=== PATIENT | male | born 1970 | race Caucasian/White ===

== ENCOUNTER 2018-09-23 01:07 | Emergency (ER) | payer MEDICAID, OTHER ==
[~2018-09-23] VITALS: Wt 90.0 kg
[2018-09-23] MEDS ORDERED: SOD CHLORIDE 0.9% 1,000 ML IV STA (02:27)
[2018-09-23] MEDS ORDERED: morphine 4 MG/ML VIAL IV STA (02:27)
[2018-09-23] MEDS ORDERED: ONDANSETRON 4 MG INJ IV STA (02:27)
[2018-09-23] MEDS ORDERED: AMLO-147 PO (03:32)
[2018-09-23] MEDS ORDERED: HYDR25TA6 PO (03:32)
[2018-09-23] MEDS ORDERED: LISI40TA3 PO (03:32)
[2018-09-23] MEDS ORDERED: TRAM50TA2 PO (04:42)
[2018-09-23] MEDS ORDERED: ONDA4TAB14 PO (04:42)
[2018-09-23 04:55] VITALS: BP 150/98; PULSE 68; RESP 19
--- NOTE | 2018-09-23 05:05 | ERD ---
ER Documentation Chief Complaint Chief Complaint AP X'S 1 DAY HPI Is a 47-year-old male who comes over the suprapubic abdominal pain for the past day. Pain is mild to moderate intensity no exacerbating alleviating factors. Denies dysuria urgency or frequency. Denies any other current complaints ROS All systems reviewed and are negative except as per history of present illness. Medications Home Meds Active Scripts Ondansetron (Ondansetron Odt) 4 Mg Tab.rapdis, 4 MG PO Q6H PRN for NAUSEA AND/OR VOMITING, #10 TAB Prov:LIBANTODSHASHI Jakob 09/23/18 Tramadol HCl (Tramadol HCl) 50 Mg Tablet, 50 MG PO Q4 PRN for PAIN, #20 TAB Prov:SHASHI HERNANDEZ 09/23/18 Reported Medications Amlodipine Besylate* (Amlodipine Besylate*) 10 Mg Tablet, 10 MG PO QAM, #30 TAB 09/23/18 Hydrochlorothiazide* (Hydrochlorothiazide*) 25 Mg Tab, 25 MG PO QAM, #30 TAB 09/23/18 Lisinopril* (Lisinopril*) 40 Mg Tablet, 40 MG PO QAM, #30 TAB 09/23/18 Allergies Allergies: Coded Allergies: No Known Allergy (Unverified , 09/23/18) PMhx/Soc Hx Cardiac Disorders: Yes (htn) Hx Alcohol Use: Yes Hx Substance Use: No Hx Tobacco Use: No Smoking Status: Never smoker Physical Exam Vitals Vital Signs Date Temp Pulse Resp B/P (MAP) Pulse Ox O2 O2 Flow FiO2 Time Delivery Rate 09/23/18 68 19 150/98 99 Room Air 04:55 (115) 09/23/18 70 16 109/75 97 Room Air 03:14 (86) 09/23/18 98.2 84 18 158/65 99 01:12 (96) Physical Exam Const: No acute distress Head: Atraumatic Eyes: Normal Conjunctiva ENT: Normal External Ears, Nose and Mouth. Neck: Full range of motion. No meningismus. Resp: Clear to auscultation bilaterally Cardio: Regular rate and rhythm, no murmurs Abd: Soft, non tender, non distended. Normal bowel sounds Skin: No petechiae or rashes Back: No midline or flank tenderness Ext: No cyanosis, or edema Neur: Awake and alert Psych: Normal Mood and Affect Result Diagram: 09/23/18 0346 09/23/18 0346 Results 24 hrs Laboratory Tests Test 09/23/18 02:28 09/23/18 03:46 Urine Color YELLOW Urine Clarity CLEAR Urine pH 6.0 Urine Specific [place] 1.019 Urine Ketones NEGATIVE mg/dL Urine Nitrite NEGATIVE mg/dL Urine Bilirubin NEGATIVE mg/dL Urine Urobilinogen 2+ mg/dL Urine Leukocyte Esterase NEGATIVE Howard/ul Urine Hemoglobin NEGATIVE mg/dL Urine Glucose NEGATIVE mg/dL Urine Total Protein NEGATIVE mg/dl White Blood Count 5.0 10^3/ul Red Blood Count 3.66 10^6/ul Hemoglobin 10.7 g/dl Hematocrit 31.4 % Mean Corpuscular Volume 85.8 fl Mean Corpuscular Hemoglobin 29.2 pg Mean Corpuscular Hemoglobin Concent 34.1 g/dl Red Cell Distribution Width 12.2 % Platelet Count 101 10^3/UL Mean Platelet Volume 12.2 fl Immature Granulocytes % 0.200 % Neutrophils % 50.7 % Lymphocytes % 35.0 % Monocytes % 10.3 % Eosinophils % 3.2 % Basophils % 0.6 % Nucleated Red Blood Cells % 0.0 /100WBC Immature Granulocytes # 0.010 10^3/ul Neutrophils # 2.6 10^3/ul Lymphocytes # 1.8 10^3/ul Monocytes # 0.5 10^3/ul Eosinophils # 0.2 10^3/ul Basophils # 0.0 10^3/ul Nucleated Red Blood Cells # 0.0 10^3/ul Sodium Level 141 mmol/L Potassium Level 3.5 mmol/L Chloride Level 106 mmol/L Carbon Dioxide Level 28 mmol/L Anion Gap 7 Blood Urea Nitrogen 10 mg/dl Creatinine 0.57 mg/dl Est Glomerular Filtrat Rate mL/min > 60 mL/min Glucose Level 126 mg/dl Calcium Level 8.2 mg/dl Total Bilirubin 0.5 mg/dl Direct Bilirubin 0.00 mg/dl Indirect Bilirubin 0.5 mg/dl Aspartate Amino Transf (AST/SGOT) 21 IU/L Alanine Aminotransferase (ALT/SGPT) 23 IU/L Alkaline Phosphatase 73 IU/L Total Protein 7.4 g/dl Albumin 4.0 g/dl Globulin 3.40 g/dl Albumin/Globulin Ratio 1.17 Lipase 132 U/L Current Medications Medications Dose Sig/Suzy Start Time Status Last (Trade) Ordered Route PRN Stop Time Admin Dose Reason Admin Sodium 1,000 ml @ Q1H STAT 09/23/18 DC 09/23/18 Chloride 1,000 mls/hr IV 02:27 03:08 09/23/18 03:26 Morphine 4 mg ONCE STAT 09/23/18 DC 09/23/18 Sulfate IV 02:27 03:08 (morphine) 09/23/18 02:28 Ondansetron 4 mg ONCE STAT 09/23/18 DC 09/23/18 HCl (Zofran IV 02:27 03:08 Inj) 09/23/18 02:28 Procedures/MDM Medical decision making: Patient's gastrointestinal symptoms have stabilized while in the department. No evidence of severe dehydration, sepsis, or surgical abdomen. Extensive discussion with family and patient that occult disease cannot be ruled out. 8 hour recheck for repeat abdominal exam is planned. Departure Diagnosis: Primary Impression: Abdominal pain Abdominal location: unspecified location Qualified Codes: R10.9 - Unspecified abdominal pain Condition: Stable Patient Instructions: Abdominal Pain SHASHI HERNANDEZ September 23, 2018 05:04
== END 2018-09-23 04:56 | disposition home or self-care (01) ==
LOC: E/R 01:07
DX: R10.9 Unspecified abdominal pain (principal); I10 Essential (primary) hypertension
CPT/HCPCS: 71045; 74176; 80053; 81003; 83690; 85025; 96374; 96375; J2270; J2405; J7030; Z7502

== ENCOUNTER 2019-02-24 18:19 | Emergency (ER) | payer MEDICAID ==
[~2019-02-24] VITALS: Ht 167.6 cm; Wt 75.0 kg
[~2019-02-24 18:19] MED LIST: AMLO-147 PO; HYDR25TA6 PO; LISI40TA3 PO; ONDA4TAB14 PO; TRAM50TA2 PO
[2019-02-24 18:20] VITALS: Ht 167.6 cm; Wt 75.0 kg
[2019-02-24] MEDS ORDERED: LISINOPRIL 20 MG TAB PO ONE (18:30)
[2019-02-24] MEDS ORDERED: AMLODIPINE 10 MG TAB PO ONE (18:30)
[2019-02-24] MEDS ORDERED: HYDROCHLOROTHIAZIDE 25 MG TAB PO ONE (18:30)
[2019-02-24 19:13] VITALS: BP 205/141; PULSE 70; RESP 18
== END 2019-02-24 19:15 | disposition home or self-care (01) ==
LOC: E/R 18:19
DX: I10 Essential (primary) hypertension (principal); Z91.19 Patient's noncompliance with other medical treatment and regimen
CPT/HCPCS: Z7502; Z7610; 99283